=== PATIENT | male | born 1970 | race Caucasian/White ===

== ENCOUNTER → 2016-07-01 | Outpatient (CLI) | payer SELFPAY ==
[~2016-07-01] VITALS: Ht 172.7 cm; Wt 68.2 kg
[~2016-07-01] MED LIST: AMARYL2 MG PO; ASPIRIN EC81 MG PO; BACITRACIN1 PKT TOP; ENALAPRIL MALEAT5 MG PO; GLUCOPHAGE1000 MG PO; LIPITOR40 MG PO; NORCO 5-325 TA1 EACH PO
--- NOTE | ~2016-07-01 | ENPV ---
Vascular Lower Extremity Vein Mapping Procedure Demographics Patient Name SUMAN LAU Date of Study 07/01/2016 Patient Number [id number] Gender Male Date of 1970 Age 46 Visit Number [id number] Height 68 Accession Number [id number] Weight 150.36 Referring Patrick Copeland MD Interpreting Patrick Copeland MD Physician Physician Physician Ordering Physician System Support Technician Pin Game Machine Inspector Milena Blanton [facility] Conclusions Summary Inadequate veins bilaterally Procedure Type of Study: Veins:Lower Extremity Vein Mapping, Vein Mapping. Appropriate Use Criteria:8 Allergies - No known allergies. Patient Status:Routine. Study Location:Vascular Lab. Technical Quality:Adequate visualization. Risk Factors - The patient's risk factor(s) include: orally-treated diabetes mellitus. - The patient has a current/recent (within 1 year) tobacco history. - The patient's last creatinine was 0.9 mg/dl. Velocities are measured in cm/s ; Diameters are measured in cm + ++--------++--------+ !Superficial - Great Saphenous Vein !!Right !!Left ! + ++--------++--------+ !Location !!Diameter!!Diameter! + ++--------++--------+ !GSV High Thigh !!0.22 !!0.32 ! + ++--------++--------+ !GSV Mid Thigh !!0.15 !!0.27 ! + ++--------++--------+ !GSV Low Thigh !!0.18 !!0.18 ! + ++--------++--------+ !GSV Knee !!0.18 !!0.2 ! + ++--------++--------+ !GSV High Calf !!0.23 !! ! + ++--------++--------+ !GSV Mid Calf !!0.24 !! ! + ++--------++--------+ !GSV Low Calf !!0.18 !! ! + ++--------++--------+ Signature dtt: VAISHALI NIEVES dtyumi: 07/01/16 1314 Physician Self Edit
--- NOTE | ~2016-07-01 | OR ---
PATIENT'S NAME: SUMAN LAU [facility] AGE: 46 Y [address] ROOM: [place] [address] [facility] ADMIT DATE: 07/01/2016 OR/Procedure Report DISCHARGE DATE: FAMILY PHYSICIAN: Oscar Burroughs MD ATTENDING PHYSICIAN: MIN NGUYEN SURGEON: Min Nguyen MD ENGINEERING PROJECT MANAGER: DATE OF PROCEDURE: 07/01/2016 PREOPERATIVE DIAGNOSIS: Severe bilateral claudication. POSTOPERATIVE DIAGNOSIS: Severe bilateral claudication. PROCEDURE: Aortogram with bilateral runoff. AIR POLLUTION AUDITOR: shellfish processing laborer staff. ANESTHESIA: MAC with local. ESTIMATED BLOOD LOSS: 10 mL. OPERATIVE FINDINGS: Bilateral SFA occlusions. The patient will require bypasses. DESCRIPTION OF PROCEDURE: The patient was brought to cardiac cath lab technologist, placed supine on the cardiac cath lab technologist table, prepped and draped in a sterile manner. Preoperative time-out was performed. We used ultrasound guidance to gain access via the right groin. We used a micropuncture needle, followed by micropuncture wire, followed by micropuncture sheath. We exchanged using Seldinger technique for a 5-Mosotho short sheath. We then went up in the aorta using 0.35 Glidewire as well as Omni Flush catheter and performed the aortogram, which showed patent renal vessels, bilateral patent common external and internal iliac arteries. We went up and over the aortic bifurcation and catheter in the common femoral performed angiogram which showed that the SFA was occluded proximally and reconstituted at the popliteal level with normal 3 vessel runoff. We removed the Omni Flush and performed angiogram of the right lower extremity through the sheath, revealing the same thing. We removed the sheath and held pressure for 10 minutes. The patient tolerated the procedure well. The patient will need a bypass of his left lower extremity. MIN NGUYEN MD PATIENT'S NAME: SUMAN LAU [facility] AGE: 46 Y [address] ROOM: [place] [address] [facility] AD[facility] DATE: 07/01/2016 OR/Procedure Report DISCHARGE DATE: FAMILY PHYSICIAN: Oscar Burroughs MD ATTENDING PHYSICIAN: MIN NGUYEN/markl /[id number] d: 07/01/160 t: 07/04/16 1010, OPERATIVE SUMMARY
== END | disposition disaster alternative care site (69) ==
LOC: GPOC 06-25 13:00 → GCAT 06:41 → GPCU 06:42 → GPOC 07:00 → GCAT 13:00
PROC: B40DYZZ Plain Radiography of Aorta and Bilateral Lower Extremity Arteries using Other Contrast (ICD-10-PCS; principal; 2016-07-01)
DX: I73.9 Peripheral vascular disease, unspecified (principal); I87.2 Venous insufficiency (chronic) (peripheral); E11.9 Type 2 diabetes mellitus without complications; Z87.891 Personal history of nicotine dependence
CPT/HCPCS: C1769; C1887; J0690; J1644; J2001; J2250; J3010; J7030

== ENCOUNTER 2016-07-23 08:00 | Inpatient (IN) | payer SELFPAY ==
[~2016-07-23] VITALS: Ht 172.7 cm; Wt 66.2 kg
--- NOTE | ~2016-07-23 | DS ---
PATIENT'S NAME: SUMAN LAU [facility] AGE: 46 Y [address] ROOM: [id number] [place], [place] [address] LOCATION: GPCU ADMIT DATE: 07/30/2016 Discharge Summary DISCHARGE DATE: 08/01/2016 FAMILY PHYSICIAN: Oscar Burroughs MD ATTENDING PHYSICIAN: Min Nguyen FINAL DIAGNOSIS: Critical limb ischemia. SECONDARY DIAGNOSES: 1. Essential hypertension. 2. Diabetes mellitus type 2. 3. Tobacco abuse. CONSULTS: Hospitalist for medication management. PROCEDURES: Left common femoral artery endarterectomy with bovine patch and femoral ywgdu-wyi-skws popliteal bypass with graft by Dr. Nguyen on 07/30/2016. HOSPITAL COURSE: This is a 46-year-old male, admitted to [facility] on 07/30/2016 after left common femoral endarterectomy with bovine patch and femoral bevgg-owz-ibjh popliteal bypass with graft. The patient has a history of left SFA occlusion diagnosed via angiogram and slow healing abscess to the base of his left foot. The patient has a known history of uncontrolled diabetes and tobacco abuse. See patient's full history and physical for details. The patient tolerated the procedure well with a strong postop posterior tibialis signal. After recovery, the patient was admitted to PCU for monitoring of vitals, labs, telemetry, peripheral pulses, surgical site, pain management, medication administration, and nursing assistance. The patient was placed on bedrest overnight without complications. An art line and Rojas were discontinued in the a.m. While inpatient, the patient had continued to receive IV Ancef. Wound Care evaluated the patient for left fifth metatarsal foot ulcer. They recommended covering it with Band-Aid and bacitracin ointment daily. The patient does follow with a byproducts pump operator in [place] and we will continue with him on discharge. On postop day #1, surgical dressings were found to be clean, dry, and intact. The patient with strong dorsalis pedis and posterior tibial signals. On postop day #2, sites were found in a stable condition and the patient began working with Physical Therapy and Occupational Therapy. The patient was able to ambulate in the vasquez without difficulties and pain was well controlled. The patient was found in a stable condition on postop day #2 to be discharged home. DIAGNOSTICS/LABS: White blood cell count trending 9.8, 10.5, 10.5. Hemoglobin 14.0, 11.0, 11.7. PATIENT'S NAME: SUMAN LAU [facility] AGE: 46 Y [address] ROOM: [id number] [place], [place] [address] LOCATION: GPCU ADMIT DATE: 07/30/2016 Discharge Summary DISCHARGE DATE: 08/01/2016 FAMILY PHYSICIAN: Oscar Burroughs MD ATTENDING PHYSICIAN: Min Nguyen DISCHARGE ORDERS: The patient is to be discharged to home on a regular diet. No heavy lifting for 2 weeks. He is to follow up with Sarah Allan APRN, 08/19/2016, at [facility]. He is supposed to continue plan of care with his byproducts pump operator regarding his left foot ulcer. He is to apply daily dry dressings to his left groin. He is to report any signs or symptoms of infection including redness, swelling, fevers, chills, or drainage. DISCHARGE MEDICATIONS: 1. Metformin 1000 mg p.o. twice daily with meals. 2. Enalapril 5 mg p.o. daily. 3. Aspirin 81 mg p.o. daily. 4. Glimepiride 2 mg p.o. twice daily. 5. Atorvastatin 40 mg p.o. daily. 6. Bacitracin ointment topically daily. 7. [place] 5/325 one to two tablets every 4 hours as needed for pain. DISPOSITION: The patient is discharged home in a stable condition. He is to follow discharge orders as prescribed. Education about discharge including surgical site care, medications, prescriptions, diet, activity, and followup appointments given to the patient. The patient verbalized understanding the plan and had no further questions or concerns. He is to follow discharge orders as prescribed. SARAH ALLAN APRN FOR MIN NGUYEN MD TO/markl /[id number] d: 08/09/16 0345 t: 08/12/16 1938, DISCHARGE SUMMARY
--- NOTE | ~2016-07-23 | OR ---
PATIENT'S NAME: SUMAN LAU [facility] AGE: 46 Y [address] ROOM: [address] [address] LOCATION: GPCU ADMIT DATE: 07/30/2016 OR/Procedure Report DISCHARGE DATE: FAMILY PHYSICIAN: Oscar Burroughs MD ATTENDING PHYSICIAN: MIN NIEVES SURGEON: Min Nieves MD CERTIFIED PERFORMANCE TECHNOLOGIST: DATE OF PROCEDURE: 07/30/2016 PREOPERATIVE DIAGNOSIS: Critical ischemia of the left lower extremity. POSTOPERATIVE DIAGNOSIS: Critical ischemia of the left lower extremity. PROCEDURE: 1. Left common femoral endarterectomy with bovine pericardial patch. 2. Fem above-knee pop bypass with 8 mm PTFE graft. ANESTHESIA: General. ESTIMATED BLOOD LOSS: 100 mL. BLUE CRABBER: CHASE Dyer. OPERATIVE FINDINGS: Strong PT signal in the case, which augmented with compression of the graft. DESCRIPTION OF PROCEDURE: The patient was brought to the operating room, placed supine on the operating table, placed under general anesthesia, prepped and draped in a sterile manner. Preoperative time-out was performed. The patient had placement of Rojas for intraop monitoring. The patient received preoperative antibiotics. Standard incision was made in the groin in a transverse fashion, dissected down the fascia, incised the fascia in a longitudinal manner, dissected out the common femoral to superficial femoral and the profunda femoral medial from preoperative angiography, the superficial femoral artery was occluded. After feeling the common femoral artery, we realized that this artery was heavily calcified and filled with plaque and did not have a strong pulse and would require an endarterectomy. We then dissected out our above knee popliteal through a medial incision in the above knee region, dissected down the fascia, incised the fascia, dissected out the superior aspect of the popliteal artery. We then tunneled an 8 mm graft from the proximal to distal incision. We then gave 5000 units of heparin. We clamped proximally and distally on the common femoral artery and placed a clamp on the profunda. We made an arteriotomy and then extended using Bailey scissors. We did a standard endarterectomy removing the plaque in its entirety and removing the plaque from the orifice of the profunda. We then PATIENT'S NAME: SUMAN LAU [facility] AGE: 46 Y [address] ROOM: [facility] [place], [place] [address] [facility] AD[facility] DATE: 07/30/2016 OR/Procedure Report DISCHARGE DATE: FAMILY PHYSICIAN: Oscar Burroughs MD ATTENDING PHYSICIAN: MIN NIEVES did a standard bovine pericardial patch using two running 6-0 [place] sutures. We removed the clamps and there was a much stronger pulse now in the common femoral artery. We clamped once again on the artery, made an arteriotomy in the patch, and extended to 8 mm and then did a standard 6-0 Prolene anastomosis from the graft to the patch that we just placed. We then performed a standard anastomosis distally from the graft to the artery as well, removed the clamps. There was excellent flow into the artery and then had a strong PT signal, which augmented with compression of the graft. We used a total of 8000 units of heparin, which was reversed with 50 mg of protamine. Deep layers were all closed with 2-0 and 3-0 Vicryl. Skin was closed with zakiya. The patient tolerated the procedure well and was transferred to recovery room and then up to the floor. MIN NIEVES MD FKM/modl /[id number] d: 07/30/16 2253 t: 08/02/16 0945, OPERATIVE SUMMARY
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
[~2016-07-23 08:00] MED LIST changes: -AMARYL2 MG PO; -BACITRACIN1 PKT TOP; -LIPITOR40 MG PO; -NORCO 5-325 TA1 EACH PO
[2016-07-23] MEDS ORDERED: AMARYL2 MG PO (08:21)
[2016-07-30 06:34] LABS: BASOPHIL # 0.1 K/uL (0.0-0.2); BASOPHIL % 0.5 %; EOSINOPHIL # 0.1 K/uL (0.0-0.5); EOSINOPHIL % 1.3 %; HEMATOCRIT 41.4 % (37.0-53.0); IMMATURE GRANULOCYTE % 0.3 %; LYMPHOCYTE # 2.7 K/uL (0.8-4.0); MCH 28.9 pg (27.0-34.0); MCHC 33.8 gm/dL (32.0-36.5); MCV 85.4 fl (83.0-98.0); MONOCYTE # 0.7 K/uL (0.0-1.0); MONOCYTE % 6.9 %; MPV 8.6 fl (9.4-12.4); NEUTROPHIL # (ANC) 6.2 K/uL (1.4-9.0); NRBC % 0 /100WBC (0-0.00); RBC 4.85 M/uL (4.00-6.00); RDW-CV 12.3 % (11.9-14.6); WBC 9.8 K/uL (4.0-11.0)
[2016-07-30 06:39] LABS: PLATELET COUNT 264 K/uL (150-450)
[2016-07-30 06:45] LABS: ALBUMIN 3.8 gm/dL (3.5-5.0); ALK PHOS 65 IU/L (33-138); ALT 27 IU/L (12-78); BLOOD UREA NITROGEN 11 mg/dL (6-24); CHLORIDE 107 mMol/L (96-110); CO2 22 mMol/L (22-32); CREATININE 0.7 mg/dL (0.6-1.3); ESTIMATED GFR (MDRD EQUATION) > 60; SODIUM 140 mMol/L (135-145); TOTAL PROTEIN 7.3 g/dL (6.0-8.4)
[2016-07-30 06:47] LABS: ANION GAP 14.9 (10.0-19.0); AST 12 IU/L (10-40); POTASSIUM 3.9 mMol/L (3.7-5.1); TOTAL BILIRUBIN 0.1 mg/dL (0.0-1.5)
--- NOTE | 2016-07-30 08:57 | NUR ---
unable to tread power glide
[2016-07-30 14:43] LABS: ANION GAP 11.2 (10.0-19.0); BLOOD UREA NITROGEN 12 mg/dL (6-24); CALCIUM 8.1 mg/dL (8.5-10.5); CHLORIDE 111 mMol/L (96-110); CO2 26 mMol/L (22-32); CREATININE 0.9 mg/dL (0.6-1.3); ESTIMATED GFR (MDRD EQUATION) > 60; POTASSIUM 4.2 mMol/L (3.7-5.1); SODIUM 144 mMol/L (135-145)
--- NOTE | 2016-07-30 17:10 | NUR ---
Significant Event:Patient arrived from PACU at 1345. Has dressing to left leg, are dry and intact. Able to dopple pulses. Has had Fent and 2 Ranger in PACU. Fo mu cath is intact, draining clear yellow urine. Is diabetic. Is on 2L O2. Follow up:Monitor post fem-pop
--- NOTE | 2016-07-31 04:12 | NUR ---
Significant Event: Patient bedrest until 1345. Dressing to L) groin area intact with scant amount of bloody drainage. Dressing to L) inner thigh intact with scant drainage. Pulses palpable. Had 1 tab [place] at 0305. Rojas D/C at 0300. No UOP since then. VSS on RA. Afebrile. IV to R)forearm with NS running at 50 mls/hr. Accuchecks ACHS with mild sliding scale. Follow up: Monitor incision site. Continue with plan of care.
[2016-07-31 05:01] LABS: BASOPHIL % 0.4 %; EOSINOPHIL % 0.4 %; IMMATURE GRANULOCYTE % 0.2 %; LYMPHOCYTE # 1.6 K/uL (0.8-4.0); LYMPHOCYTE % 15.6 %; MCV 86.8 fl (83.0-98.0); MONOCYTE # 0.9 K/uL (0.0-1.0); MONOCYTE % 8.2 %; MPV 8.3 fl (9.4-12.4); NEUTROPHIL # (ANC) 7.9 K/uL (1.4-9.0); NEUTROPHIL % 75.2 %; NRBC % 0 /100WBC (0-0.00); RBC 3.79 M/uL (4.00-6.00); RDW-CV 12.5 % (11.9-14.6); WBC 10.5 K/uL (4.0-11.0)
[2016-07-31 05:07] LABS: HEMATOCRIT 32.9 % (37.0-53.0); MCHC 33.4 gm/dL (32.0-36.5); PLATELET COUNT 181 K/uL (150-450)
--- NOTE | 2016-07-31 11:50 | NUR ---
Introduced self and role of care management to patient and . They live in [facility] [place]. He states that he is able to do all his own ADL's. He has been using a walker at home. His is available to assist as needed. I did inquire if they had any medical insurance as we have him listed as self pay. They state they do not. His states that they have been given a financial assistance form already. He plans on returing home on discharge. They deny any needs at this time. Will continue to follow.
--- NOTE | 2016-07-31 13:29 | NUR ---
reviewed student charting and on the floor from [id number] javon rn-ccc
--- NOTE | 2016-07-31 14:49 | NUR ---
Diabetes Consult: Patient with A1C of 10.3% as of 07/01/2016. Patient reports having seen his primary provider, Stacey DAMON, in [place] two weeks ago. Reports he was started on amaryl at that time. Since that time, he indicates his blood sugars have improved. Blood sugars are currently 120's. Patient is wanting to walk in the halls. He denies any needs and was given th diabetes assessment form to complete. Will continue to follow.
--- NOTE | 2016-07-31 17:04 | NUR ---
Significant Event: A/Ox3. [id number]. P-80-100s. Afebrile. Room air. R)FA saline locked. R)groin and R) thigh D/I with scant shadowed drainage. Pulses able to be dopplered. [place] 1 tab x2 for pain in L) leg. Up with SBA. Possible discharge tomorrow or the next day to home.
[2016-08-01 04:24] LABS: BASOPHIL % 0.3 %; EOSINOPHIL # 0.1 K/uL (0.0-0.5); EOSINOPHIL % 0.6 %; HEMATOCRIT 34.8 % (37.0-53.0); HEMOGLOBIN 11.7 g/dL (12.0-17.0); IMMATURE GRANULOCYTE % 0.2 %; LYMPHOCYTE # 1.8 K/uL (0.8-4.0); LYMPHOCYTE % 16.8 %; MCH 28.7 pg (27.0-34.0); MCHC 33.6 gm/dL (32.0-36.5); MCV 85.3 fl (83.0-98.0); MONOCYTE % 9.8 %; MPV 8.6 fl (9.4-12.4); NEUTROPHIL # (ANC) 7.6 K/uL (1.4-9.0); NEUTROPHIL % 72.3 %; NRBC % 0 /100WBC (0-0.00); PLATELET COUNT 181 K/uL (150-450); RBC 4.08 M/uL (4.00-6.00); WBC 10.5 K/uL (4.0-11.0)
[2016-08-01 04:37] LABS: ANION GAP 14.5 (10.0-19.0); BLOOD UREA NITROGEN 9 mg/dL (6-24); CHLORIDE 105 mMol/L (96-110); CO2 24 mMol/L (22-32); CREATININE 0.6 mg/dL (0.6-1.3); ESTIMATED GFR (MDRD EQUATION) > 60; POTASSIUM 3.5 mMol/L (3.7-5.1); SODIUM 140 mMol/L (135-145)
--- NOTE | 2016-08-01 05:03 | NUR ---
Significant Event: A/O x3. SBP's in 170s. HR in 90-100's. Fever of 99.8 around 2300 resolved to 98.5. Room air. R) forearm SL. L) groin and L) inner thigh dressing D/I with scant shadowed drainage. Pulses palpated. [place] 1 tab at 2330 and 2 tabs at 0250 for pain in leg. Ambulates ad ozzy in room. Uses urinal independently. Follow up: Discharge tomorrow if can walk 2 laps without pain.
[2016-08-01] MEDS ORDERED: LIPITOR40 MG PO (11:11)
[2016-08-01] MEDS ORDERED: BACITRACIN1 PKT TOP (11:14)
[2016-08-01] MEDS ORDERED: NORCO 5-325 TA1 EACH PO (11:18)
--- NOTE | 2016-08-01 11:58 | NUR ---
reviewed student charting and on the floor from [id number] javon rn-ccc
--- NOTE | 2016-08-01 13:14 | NUR ---
Diabetes center note; 1100 Talked with patient regarding diabetes care. Patient states he has all of the supplies that he needs at home to test his blood sugar, and denies further questions at this time regarding self care. Discussed action of Amaryl which he is currently taking. Agrees to continue testing blood sugars at home and report to Dr. Burroughs at his next appointment. CDE instructs on target ranges of blood sugars and importance of reducing A1C of 10.3 % (07/01/16) to promote wound healing and assist in reducing future risks of complications associated with type 2 diabetes, heart, eyes, kidneys, nerves. Patient states understanding and agrees to call Diabetes Center if further questions or concerns.
--- NOTE | 2016-08-01 13:16 | NUR ---
DISCHARGE: A/O X3. UP AD JULIANE. VSS. C/O PAIN AT INCISIONS TO LEFT GROIN AND THIGH. CARMEL INTACT. THIGH INCISION OPEN TO AIR. GROIN INCISION COVERED WITH GAUZE & TRANSPARENT. AEVRY GIVEN @ 1145. PIV REMOVED. PT REFUSED PNEUMO VACCINE. DISCHARGE MEDICATIONS DISCUSSED. FOLLOW-UP APPOINTMENTS REVIEWED. SITE CARE AND ACTIVITY RESTRICTIONS REVIEWED. NO FURTHER QUESTIONS. TAKEN TO [facility] BY WHEELCHAIR @ 2311 BY ARMORED CAR GUARD.
== END 2016-08-01 12:30 | disposition disaster alternative care site (69) | DRG 254 ==
LOC: GPOC 08:00 → GPCU 07-30 05:46 → EDSTATUS 07-30 08:00 → GPOC 07-30 08:00 → GPCU 07-30 13:55
PROVIDERS: Internal Medicine; ADMIT Surgery Vascular Surgery
DX: I73.9 Peripheral vascular disease, unspecified (principal); I10 Essential (primary) hypertension; E11.9 Type 2 diabetes mellitus without complications; Z72.0 Tobacco use
CPT/HCPCS: C1751; J0690; J1644; J1650; J2001; J2405; J2440; J2720; J3010; J7030